=== PATIENT | female | born 1950 | race Caucasian/White ===

== ENCOUNTER → 2022-02-13 | Outpatient (CLI) | payer MEDICARE, SELFPAY ==
--- NOTE | 2022-02-13 13:30 | RAD_ITS ---
EXAM: XR RIGHT KNEE, 1 OR 2 VIEWS CLINICAL INDICATION: R KNEE PAIN TECHNIQUE: Frontal and/or lateral views of the right knee. This report was created using [employer] report generation technology. COMPARISON: The right and one half, moderate FINDINGS: Please refer to the Impression RAD/Knee 1 or 2 Views IMPRESSION: 1. Mild lateral subluxation of the tibia relative to the femur. 2. No significant arthritic changes for age. 3. No acute or healing fracture or malalignment. 4. Peripheral vascular calcifications posteriorly. 5. No significant joint effusion. Electronically Signed: Jagdeep Dumont MD at 17:14 EDT ,
[2022-02-13 14:20] LABS: Amphetamine Urine VISTA NEGATIVE (<1000 ng/mL); Barbiturate Urine VISTA NEGATIVE (< 200 ng/mL); Benzodiazepine Urine VISTA NEGATIVE (< 200 ng/mL); Cocaine Urine VISTA NEGATIVE (< 300 ng/mL); Ecstacy Urine VISTA NEGATIVE (< 500 ng/mL); Methadone Urine VISTA NEGATIVE (< 300 ng/mL); PCP Urine VISTA NEGATIVE (< 25 ng/mL); THC Urine VISTA NEGATIVE (< 50 ng/mL); Vista UDS pH Range 6
== END | disposition home or self-care (01) ==
LOC: LAB 13:16
PROVIDERS: Referring Provider Anesthesiology Pain Medicine; Visit Provider Anesthesiology Pain Medicine
DX: F11.20 Opioid dependence, uncomplicated (principal); M25.561 Pain in right knee
CPT/HCPCS: 73560; 80307

== ENCOUNTER 2022-05-18 13:00 | Outpatient (RCR) | payer MEDICARE, SELFPAY ==
--- NOTE | 2022-03-14 11:22 | HP.PTEVAL_ITS ---
Patient's Visit Information FABRICIO ALVAREZ is a 71 year old F referred to Physical Therapy by Dr. Shine Curiel MD with a diagnosis of Back and Leg Pain. Date of Evaluation: 03/14/22 Physical Therapist: Farheen Robbins DPT - Visit Plan Frequency: 3x /Week Duration: 4 Weeks Plan: Aquatic PT- focus on core and LE strength/stabilization - Subjective Patient reports that she has a lot of back pain- Dr. Curiel gave her an injection that only lasted a few days. Then her knee started to hurt and now she is having back and knee pain. She has cancer and has had a lot of weight gain very quickly. She does have right foot drop- she needs to get it fixed quickly due to not being able to drive. She has kidney cancer and goes every 3 weeks she gets an infusion- it has shrunk and she does feel better. She has had back pain for 10-15 years or more. She strained her back on a cruise and its been on/off since then. She went to a pain specialist and they did guided injections and that lasted for years. 7 years ago she had injections in both k nees- and now everything has kicked in. They were planning to do a nerve stimulator but she her A1C is too high. They have also talked about doing a lumbar decompression. Worst: 03/02. Agg: being up and moving, stand. Best: 0/10 Eases: sitting. Immediate relief with sitting. Pain is located along the belt line and lower. Pain radiates down both legs posterior to the knees. Describes the pain in her back is a sharp and achy pain. Does have N/T in her toes from neuropathy. She has more issues with her right leg. Uses a cane in the community. Right knee- pain is directly on top and feels like someone kicked her- sharp achy Agg: sitting and bending and getting up from sitting. Worst:1110 Eases: elevation Best: 0/10. Was not able to do any injection due to her lumbar spine injection. Sleep: will wake her up with rolling- its a pulling sensation from her back to her knees. No loss or change in bowel or bladder. PMHx/Meds: will bring next visit a print out - Objective Posture: FH, RS- can correct with verbal cues but does not maintain. Gait: decreased arm swing and trunk rotation- uses a straight cane- decreased stance on her right LE. HR/TR: able with UE A- right diminished by 75%. SLS: weight shift but does not SLS. ROM: lumbar: WFL in all directions- pain with extn, SB and rotation. LE: WFL. Strength: Core: fair minus, Hip: 4/5 throughout Knee: Left 4+/5, Right: 3+/5 with pain Ankle: Left: 5/5, Right: 2+/5. Flex: HS: severe, Gastroc: moderate. Palpation: tender along paraspinals belt line, and along the superior patella - Special Tests L/S Slump test left side: Positive L/S Slump test right side: Positive L/S Left Straight Leg Raise: Negative L/S Right Straight Leg Raise: Negative R Knee Roseann - Meniscus: Negative R Knee Valgus - MCL: Positive R Knee Varus - LCL: Positive R Knee Patellar Grind - PFS: Positive - Balance/Special Test Scores Lower Extremity Functional Score: 27 - Goals Goal 1:: Patient will be I with HEP and progression Goal Time Frame: 4-6 Weeks Goal 2:: Patient will maintain proper posture t/o tx session to demo increased core s/s Goal Time Frame: 4-6 Weeks Goal 3:: Patient will ambulate >300 feet with LRD and no SOB Goal Time Frame: 4-6 Weeks Goal 4:: Patient will report 80% improvement Goal Time Frame: 4-6 Weeks - Rehabilitation Potential Physical Therapy Diagnosis: Patient presents with hypomobility- she has decreased LE and core strength/stabilization, flex and muscular endurance l eading to poor posture and increased pain with ADL's. Rehabilitation Potential: Fair - Anticipated Interventions Patient/Client Instruction: Educate patient on: Benefits of Fitness Program Therapeutic Exercise to Include: Strength training, Endurance training, Balance training, Coordination, Agility training, Body mechanics, Postural training, Flexibilty training, Gait and locomotor training, Neuromotor development, In an aquatic setting, Dynamic Lumbar Stabilization, Scapular Strength/Stabilization For the Purpose of:: To improve muscle performance and motor function Thank you for the opportunity to evaluate your patient. For Medicare and Medicare HMO plans, please review the plan of care and approve it. It will need to be FAXED BACK to us at [phone] for Medicare purposes. For Medicare only, by signing this I certify the plan of care. Please let me know if there are questions or concerns regarding this plan of care. Physician Signature: Date:
--- NOTE | 2022-04-20 12:49 | HP.PTREVAL ---
Dr. Shine Curiel MD, It has been my pleasure to treat FABRICIO ALVAREZ over the last 11 visits for Back and Leg Pain. Please see the progress note below for an update on the physical therapy plan of care! Subjective: She had an infusion yesterday so she is a little off today-fatigue. Prior to the infusion- she had injections which helps the pain but she still has a lot of issues with her balance. She feels that's getting worse- she doesn't have any dizziness. She feels that water therapy has been very helpful. She would like to continue 1x a month and get in open swim. Objective/Function: Posture: FH, RS- can correct with verbal cues and is able to maintain. Gait: decreased arm swing and trunk rotation- uses a straight cane- decreased stance on her right LE. HR/TR: able with UE SLS: weight shift but does not SLS. ROM: lumbar: WFL in all directions- pain with extn, SB and rotation. LE: WFL. Strength: Core: fair minus, Hip: 4/5 throughout Knee: Left 4+/5, Right: 3+/5 with pain Ankle: Left: 5/5, Right: 2+/5. Flex: HS: severe, Gastroc: moderate. Palpation: tender along paraspinals belt line, and along the superior patella Plan Plan: 04/20/22: Continue 1-2x a month aquatics to focus on HEP. Aquatic PT- focus on core and LE strength/stabilization Balance/Gait/Functional tests - Balance/Special Test Scores Oswestry Low Back Score: 22 Lower Extremity Functional Score: 27 Goals Goal 1:: Patient will be I with HEP and progression Goal Time Frame: 4-6 Weeks Goal Progress: Progressing Goal 2:: Patient will maintain proper posture t/o tx session to demo increased core s/s Goal Time Frame: 4-6 Weeks Goal Progress: Progressing Goal 3:: Patient will ambulate >300 feet with LRD and no SOB Goal Time Frame: 4-6 Weeks Goal Progress: Progressing Goal 4:: Patient will report 80% improvement Goal Time Frame: 4-6 Weeks Goal Progress: Progressing Anticipated Interventions Patient/Client Instruction: Educate patient on: Benefits of Fitness Program Therapeutic Exercise to Include: Strength training, Endurance training, Balance training, Coordination, Agility training, Body mechanics, Postural training, Flexibilty training, Gait and locomotor training, Neuromotor development, In an aquatic setting, Dynamic Lumbar Stabilization, Scapular Strength/Stabilization For the Purpose of:: To improve muscle performance and motor function Please do not hesitate to contact me at [phone] by phone or if you have questions or concerns regarding this new plan of care! Sincerely, MARY KAY LinkT
== END 2022-05-18 19:00 | disposition home or self-care (01) ==
LOC: PT 13:00
PROVIDERS: Referring Provider Anesthesiology Pain Medicine; Visit Provider Anesthesiology Pain Medicine
DX: M54.9 Dorsalgia, unspecified (principal); M79.606 Pain in leg, unspecified
CPT/HCPCS: 97113; 97162; 97164

== ENCOUNTER → 2024-08-18 | Outpatient (REF) | payer MEDICARE, SELFPAY ==
[2024-08-18 09:17] LABS: Hematocrit 29.3 % (37-47); Hemoglobin 8.9 g/dL (12.0-15.0); Mean Corp Hgb Conc 30.4 g/dL (32-36); Mean Corpuscular Hgb 24.9 pg (27.0-32.0); Mean Corpuscular Volume 81.8 fL (81-99); Mean Platelet Vol. 10.4 fl (6.2-12.0); Platelet Count 499 K/mm3 (150-450); RBC Distribution Width CV 15.6 % (11.6-14.6); RBC Distribution Width SD 44.9 fl (35.1-43.9); Red Blood Count 3.58 M/mm3 (4.2-5.4); White Blood Count 6.9 K/mm3 (4.4-11.0)
[2024-08-18 09:49] LABS: ALB/GLOB Ratio 1.1 RATIO (0.9-2.4); AST(SGOT) 21 U/L (<=31); Alanine Aminotransfer ALT/SGPT 5 U/L (<=34); Albumin, Serum 3.5 g/dL (3.4-4.8); Alkaline Phosphatase 115 U/L (35-104); Anion Gap 11 (5-15); BUN 16 mg/dL (4-19); BUN/Creat Ratio 12.1 RATIO (10-20); Calcium,Total 9.9 mg/dL (7.6-11.0); Carbon Dioxide 23.7 mmol/L (21.0-32.0); Chloride 102 mmol/L (98-108); Creatinine, Serum 1.31 mg/dL (0.70-1.20); EST Glomerular Filtration Rate 43 (>60); Globulin 3.2 g/dL (2.2-4.2); Glucose 113 mg/dL (70-99); Potassium 4.3 mmol/L (3.3-5.1); Protein, Total 6.6 g/dL (5.9-8.4); Sodium Level 137 mmol/L (133-145); Total Bilirubin 0.79 mg/dL (0.00-1.30)
== END ==
LOC: OLS.SANC 05:38
PROVIDERS: Visit Provider Internal Medicine
DX: I48.91 Unspecified atrial fibrillation (principal); I12.9 Hypertensive chronic kidney disease with stage 1 through stage 4 chronic kidney disease, or unspecified chronic kidney disease; E11.22 Type 2 diabetes mellitus with diabetic chronic kidney disease; N18.30 Chronic kidney disease, stage 3 unspecified
CPT/HCPCS: 36415; 80053; 85027

== ENCOUNTER → 2024-08-26 | Outpatient (REF) | payer MEDICARE, SELFPAY ==
[2024-08-26 08:52] LABS: Hematocrit 31.3 % (37-47); Hemoglobin 9.5 g/dL (12.0-15.0); Mean Corp Hgb Conc 30.4 g/dL (32-36); Mean Corpuscular Hgb 25.1 pg (27.0-32.0); Mean Corpuscular Volume 82.6 fL (81-99); Mean Platelet Vol. 10.4 fl (6.2-12.0); Platelet Count 319 K/mm3 (150-450); RBC Distribution Width CV 17.1 % (11.6-14.6); RBC Distribution Width SD 50.4 fl (35.1-43.9); Red Blood Count 3.79 M/mm3 (4.2-5.4); White Blood Count 5.1 K/mm3 (4.4-11.0)
[2024-08-26 09:13] LABS: Anion Gap 11 (5-15); BUN 16 mg/dL (4-19); BUN/Creat Ratio 13.9 RATIO (10-20); Calcium,Total 9.7 mg/dL (7.6-11.0); Chloride 105 mmol/L (98-108); Creatinine, Serum 1.18 mg/dL (0.70-1.20); EST Glomerular Filtration Rate 48 (>60); Glucose 74 mg/dL (70-99); Potassium 4.1 mmol/L (3.3-5.1); Sodium Level 138 mmol/L (133-145)
== END ==
LOC: OLS.SANC 05:00
PROVIDERS: Visit Provider Internal Medicine
DX: D64.9 Anemia, unspecified (principal); E11.22 Type 2 diabetes mellitus with diabetic chronic kidney disease; I12.9 Hypertensive chronic kidney disease with stage 1 through stage 4 chronic kidney disease, or unspecified chronic kidney disease; N18.30 Chronic kidney disease, stage 3 unspecified
CPT/HCPCS: 36415; 80048; 85027